=== PATIENT | male | born 1985 | race Caucasian/White ===

== ENCOUNTER 2018-08-25 08:52 | Inpatient (IN) ==
[2018-08-25] MEDS ORDERED: PHENOBARBITAL IV PRN (10:42)
[2018-08-25] MEDS ORDERED: D5W 1,000 ML IV PRN (10:42)
[2018-08-25] MEDS ORDERED: ZOFRAN IV PRN (10:42)
[2018-08-25] MEDS ORDERED: MAALOX PLUS LIQUID PO PRN (10:42)
[2018-08-25] MEDS ORDERED: DULCOLAX PR PRN (10:42)
[2018-08-25] MEDS ORDERED: DESYREL PO PRN (10:42)
[2018-08-25] MEDS ORDERED: SENOKOT PO PRN (10:42)
[2018-08-25] MEDS ORDERED: BENTYL PO PRN (10:42)
[2018-08-25] MEDS ORDERED: TUBERSOL ID ONE (10:42)
[2018-08-25] MEDS ORDERED: TYLENOL PO PRN (10:42)
[2018-08-25] MEDS ORDERED: SEROQUEL PO PRN (10:42)
[2018-08-25] MEDS ORDERED: SALINE LOCK IV FLUID XX ONE (10:42)
[2018-08-25] MEDS ORDERED: IMODIUM PO PRN (10:42)
[2018-08-25 11:19] LABS: HEMATOCRIT 50.5 % (42.0-52.0); HEMOGLOBIN 16.7 g/dL (14.0-18.0); MCH 31.9 PG (27-31); MCHC 33.1 g/dL (33-37); MCV 96.4 FL (81-99); MPV 8.6 FL (7.4-10.4); RBC 5.24 XMIL (4.7-6.1); RDW 12.2 % (11.5-14.5); WBC 9.81 X1000 (4.8-10.8)
[2018-08-25 11:37] LABS: INR 0.94
[2018-08-25 11:38] LABS: AMYLASE 72 U/L (20-200); LIPASE 35 U/L (13-60)
[2018-08-25 11:42] LABS: AGAP 12; ALKALINE PHOSPHATASE 86 U/L (32-122); BUN 12 mg/dL (8-22); CALCIUM 9.8 mg/dL (8.8-10.2); CHLORIDE 100 mmol/L (98-107); COSMO 275; CREATININE 0.6 mg/dL (0.7-1.2); ESTIMATED GFR > 60; GLUCOSE 92 mg/dL (70-104); GOT 36 U/L (10-34); GPT 44 U/L (10-44); POTASSIUM 5.1 mmol/L (3.5-5.1); SODIUM 138 mmol/L (136-145); TCO2 26 mmol/L (25-35); TOTAL PROTEIN 8.2 g/dL (6.3-8.3)
[2018-08-25] MEDS ORDERED: M.V.I.-12 10 ML, FOLIC ACID 1 MG, MAGNESIUM SULFATE 1 GM, THIAMINE 100 MG in NS 1,000 ML IV ONE (12:00)
[2018-08-25] MEDS: LIBRIUM PO SCH ×2 (12:54→19:41)
[2018-08-25] MEDS: NICODERM PATCH TD PRN (12:56)
[2018-08-25] MEDS: ROCEPHIN 1 GM in NS 50 ML IV SCH (12:56)
[2018-08-25] MEDS: ATARAX PO PRN (12:57)
--- NOTE | 2018-08-25 15:43 | Diag Imaging Result Doc PS360 ---
EXAM: CHEST-2 VIEWS - 08/25/2018 HISTORY: hypoxia TECHNIQUE: Chest two views COMPARISON: None. FINDINGS: Heart size is normal. The lungs are possibly mildly hyperexpanded. There is a small amount of infiltrate or scarring at the lateral right base. Lungs otherwise appear clear. There is no substantial pleural effusion or pneumothorax identified. IMPRESSION: Possible mildly hyperexpanded lungs. Small amount of infiltrate or scarring at lateral right base. Electronically signed by Nolberto Katz 08/25/2018 3:41 PM
[2018-08-25] MEDS: ROBAXIN PO PRN (16:21)
[2018-08-25 18:58] LABS: UR AMPHETAMINES QUAL PRESUMPTIVE POSITIVE (NONE DETECT); UR BARBITUATES QUAL NONE DETECTED (NONE DETECT); UR BENZODIAZEPIN QUAL PRESUMPTIVE POSITIVE (NONE DETECT)
[2018-08-25 18:59] LABS: UR CANNABINOIDS QUAL PRESUMPTIVE POSITIVE (NONE DETECT); UR COCAINE QUAL NONE DETECTED (NONE DETECT); UR METHADONE QUAL NONE DETECTED (NONE DETECT); UR METHAMPHETAMINE QUAL PRESUMPTIVE POSITIVE (NONE DETECT); UR OPIATES QUAL NONE DETECTED (NONE DETECT); UR OXYCODONE QUAL NONE DETECTED (NONE DETECT); UR PCP QUAL NONE DETECTED (NONE DETECT); UR PROPOXYPHENE QUAL NONE DETECTED (NONE DETECT); UR TCA QUAL NONE DETECTED (NONE DETECT)
[2018-08-25] MEDS: ZOFRAN ODT PO PRN ×2 (19:41→23:02)
[2018-08-26] MEDS: MOTRIN PO PRN ×2 (00:05→09:42)
[2018-08-26] MEDS: ROBAXIN PO PRN ×2 (00:05→09:42)
[2018-08-26] MEDS: ATARAX PO PRN (00:05)
[2018-08-26 00:18] LABS: URINE SOURCE VOIDED
[2018-08-26 00:35] LABS: BILIRUBIN URINE NEGATIVE (NEGATIVE); BLOOD URINE NEGATIVE (NEGATIVE); CLARITY VERY CLOUDY (CLEAR); COLOR YELLOW; GLUCOSE URINE NEGATIVE (NEGATIVE); KETONE URINE NEGATIVE (NEGATIVE); LEUKOCYTES URINE NEGATIVE (NEGATIVE); NITRITE URINE NEGATIVE (NEGATIVE); PROTEIN URINE NEGATIVE (NEGATIVE); UROBILINOGEN URINE NORMAL
[2018-08-26 00:56] LABS: URINE BACTERIA 3+ /HFP; URINE EPITHELIAL CELLS <10 /HPF (<10); URINE WBC <10 /HPF (<10)
[2018-08-26] MEDS: LIBRIUM PO SCH ×6 (01:33→22:34)
[2018-08-26] MEDS: PROTONIX PO SCH (06:16)
--- NOTE | 2018-08-26 08:51 | PROGRESS NOTE ---
DATE: 08/26/2018 SUBJECTIVE: Patient has no new complaints. He did have somewhat intense abdominal pain yesterday, but this seems to have resolved. It is improved. OBJECTIVE: Vital Signs: On physical, temperature 98, pulse 94, respiratory rate 22, BP 101/73. General: Patient is awake. He is in no apparent respiratory distress. HEENT: Normocephalic. Neck: Supple. CV: Regular rate. Chest: Clear, nonlabored. Abdomen: Soft, nontender. No masses. Positive bowel sounds. Extremities: Moves all extremities. ASSESSMENT: 1. Nausea, vomiting and abdominal pain. 2. Myalgias. 3. Paresthesias. 4. Paroxysmal sweating. 5. Alcohol abuse withdrawal and stabilization. 6. Stimulant abuse withdrawal and stabilization. 7. Opiate abuse withdrawal and stabilization. PLAN: Will continue patient in the hospital. Continue symptomatic care. Continue to taper Librium. Further orders as needed. cc: Ok Stark MD
[2018-08-26] MEDS ORDERED: NS 50 ML ONE (09:36)
[2018-08-26] MEDS: ROCEPHIN 1 GM in NS 50 ML IV SCH ×2 (09:41→10:51)
[2018-08-26] MEDS: ZOFRAN ODT PO PRN ×2 (09:42→22:34)
[2018-08-26] MEDS: VITAMIN B-1 PO SCH (09:42)
[2018-08-26] MEDS: THERA M PLUS PO SCH (09:42)
[2018-08-26] MEDS: FOLIC ACID PO SCH (09:42)
[2018-08-26] MEDS: SUBOXONE 2 MG/0.5 MG FILM SL SCH ×2 (11:49→22:35)
[2018-08-27] MEDS: LIBRIUM PO SCH ×4 (05:10→22:27)
[2018-08-27] MEDS: PROTONIX PO SCH (06:02)
[2018-08-27] MEDS: VITAMIN B-1 PO SCH (09:41)
[2018-08-27] MEDS: FOLIC ACID PO SCH (09:41)
[2018-08-27] MEDS: THERA M PLUS PO SCH (09:41)
[2018-08-27] MEDS: ROCEPHIN 1 GM in NS 50 ML IV SCH (09:45)
[2018-08-27] MEDS: SUBOXONE 2 MG/0.5 MG FILM SL SCH (13:19)
[2018-08-27] MEDS: NICODERM PATCH TD PRN (17:54)
[2018-08-28] MEDS ORDERED: SUBOXONE 2 MG/0.5 MG FILM SL SCH (01:00)
[2018-08-28] MEDS: LIBRIUM PO SCH (05:18)
[2018-08-28] MEDS: PROTONIX PO SCH (06:03)
[2018-08-28] MEDS: FOLIC ACID PO SCH (08:54)
[2018-08-28] MEDS: NICODERM PATCH TD PRN (08:54)
[2018-08-28] MEDS: VITAMIN B-1 PO SCH (08:54)
[2018-08-28] MEDS: THERA M PLUS PO SCH (08:54)
[2018-08-28] MEDS: ROCEPHIN 1 GM in NS 50 ML IV SCH (10:12)
[2018-08-28] MEDS: ZOFRAN ODT PO PRN (11:55)
[2018-08-28] MEDS: ROBAXIN PO PRN (14:36)
[2018-08-28] MEDS: ATARAX PO PRN (18:37)
[2018-08-28] MEDS: SUBOXONE 2 MG/0.5 MG FILM SL SCH (21:13)
[2018-08-29] MEDS: PROTONIX PO SCH ×2 (05:58→06:02)
[2018-08-29] MEDS: THERA M PLUS PO SCH (08:49)
[2018-08-29] MEDS: SUBOXONE 2 MG/0.5 MG FILM SL SCH ×2 (08:49→21:00)
[2018-08-29] MEDS: FOLIC ACID PO SCH (08:49)
[2018-08-29] MEDS: VITAMIN B-1 PO SCH (08:50)
--- NOTE | 2018-08-29 10:01 | PROGRESS NOTE ---
DATE: 08/28/2018 SUBJECTIVE: The patient is still somewhat sedated. He does arouse and is able answer to questions once he is awake. OBJECTIVE: Vital Signs: Reviewed. Blood pressures has been low in the upper 80s, low 90s. Respiratory 20. He is afebrile. HEENT: Normocephalic. Neck: Supple. CARDIOVASCULAR: Regular rate. Chest: Clear and nonlabored. Abdomen: Soft, nondistended. Extremities: Moves all extremities. ASSESSMENT: 1. Hypotension. 2. Sedation. 3. Chronic polysubstance use and abuse. 4. Myalgias, improved. 5. Paresthesias, resolved. PLAN: We will continue the patient in the hospital. Will hold his Librium currently. Will also hold his Suboxone and will follow. Will treat symptomatically. Hopefully home over the next 1 or 2 days as has symptoms improve. cc: Ok Stark MD
[2018-08-29] MEDS: ROCEPHIN 1 GM in NS 50 ML IV SCH (11:02)
[2018-08-29] MEDS: ATARAX PO PRN ×2 (12:29→15:15)
--- NOTE | 2018-08-29 14:50 | PROGRESS NOTE ---
DATE: 08/29/2018 SUBJECTIVE: The patient states he started to feel a little bit better this morning. He slept most of the day yesterday. He denies any chest pain or palpitations. He denies any focalized weakness. PHYSICAL EXAMINATION: Vital signs reviewed. Blood pressures are improving; currently 100 systolic. General: Patient is in no current respiratory distress. HEENT: Normocephalic. Neck supple. CARDIOVASCULAR: Regular rate. No murmurs. Chest clear and unlabored. Abdomen is soft and nondistended. Extremities: He moves all extremities. ASSESSMENT: 1. Hypotension likely secondary to medication over usage. We have held Librium and held Suboxone. This morning, we will restart 2 mg of Suboxone and follow his clinical progress. 2. Myalgias. 3. Paresthesias. 4. Paroxysmal sweating. PLAN: As noted above. Hopefully, patient can discharge home over the next day or 2 if his blood pressures remain stable. cc: Ok Stark MD
[2018-08-29] MEDS: ROBAXIN PO PRN (15:14)
--- NOTE | 2018-08-29 16:17 | HISTORY AND PHYSICAL ---
CHIEF COMPLAINT: Nausea and vomiting. HISTORY OF PRESENT ILLNESS: The patient is a 33-year-old male who presented to [facility] secondary to nausea, vomiting, abdominal pain, muscle aches. SOCIAL HISTORY: Patient is single. He is unemployed. Lives at home in [place]. PAST MEDICAL HISTORY: History of seizures. INCOMPLETE REPORT -- DICTATION ENDS HERE. cc: Ok Stark MD
--- NOTE | 2018-08-29 21:32 | HISTORY AND PHYSICAL ---
CHIEF COMPLAINT: Nausea, vomiting. HISTORY: Patient 33-year-old male who presented to [facility] secondary to nausea, vomiting, abdominal pain, myalgias, muscle aches. Notes has been abusing substances and has been trying to stop but he has not been able to get under control. SOCIAL HISTORY: Patient is single, he is unemployed, lives at home in [place]. PAST MEDICAL HISTORY: History of seizures that was mainly related to withdrawal although has had a seizure that may not have been substance abuse related. Has history of hepatitis C, recurrent pneumonia in fact he was just recently diagnosed with pneumonia and discharged the hospital but did not fill a prescription. History of overdose in 2009 and again in May 2018, history of depression diagnosed at age 17, last seizure was in May 2018. ALLERGIES: Neosporin. REVIEW OF SYSTEMS: CINA score is 19 secondary to nausea, vomiting, abdominal pain, frequent episodes of diarrhea, constant tremors, frequently shaking, cold chills. Denies any fevers but does have frequent temperature changes, he is restless. Denies any headaches, blurred vision or change in vision, denies any focalized numbness, tingling, weakness but is unable sit still constantly fidgeting, not sleeping well not eating well. Denies any chest pain, palpitation, denies any focalized weakness or numbness. Denies any dysuria, frequency, urgency, hesitancy, polyuria, polydipsia. Denies skin rashes, weight loss or weight gain. SUBSTANCE ABUSE HISTORY: The patient was in a treatment facility in [place], [place] for 7 days in early 1999, in [place] in 2013 for alcohol withdrawal for 7 days, [place] in 2007 for alcohol withdrawal for 7 days. Unfortunately he has only remained sober for 1 to 2 months at a time over the past 17 years. Started drinking alcohol as early as age 7, currently drinks every day at least a 6-pack and usually 2 pints of vodka a day. Started marijuana at age 12, started stimulants at age 15, currently using IV daily, started opiates also at age 21 and is using this IV daily. FAMILY HISTORY: Positive for alcoholism. PHYSICAL: Vital signs reviewed and stable. Patient is awake, alert, he is currently in no distress. He is somewhat ill-appearing secondary to his withdrawal symptoms. Denies any headaches. He is awake, alert, oriented x3. He is somewhat pleasant to talk with although has to be frequently redirected to answer questions as he is easily distracted, he is constantly fidgeting .HEENT: Normocephalic. Neck: Supple. CV: Regular rate, no murmurs. Chest: Clear, nonlabored. Abdomen: Soft, nondistended, nontender. Extremities: Moves all extremities. Neuro: No focal changes, he is awake, alert, oriented, constantly fidgeting. LABS: Pending. ASSESSMENT: 1. Nausea, vomiting. 2. Abdominal pain. 3. Myalgias. 4. Paresthesias. 5. Tremors. 6. Paroxysmal sweating. 7. Alcohol abuse withdrawal and stabilization. 8. Opiate abuse withdrawal and stabilization. 9. Polysubstance use and abuse. PLAN: We will admit patient the hospital, place him on Librium taper, as he tapers down on Librium hopefully we can increase his Suboxone and continue with medication assisted therapy. Will continue counseling each day and will monitor for seizures as he has had seizures in the past. cc: Ok Stark MD
[2018-08-30] MEDS: PROTONIX PO SCH (06:27)
[2018-08-30] MEDS: VITAMIN B-1 PO SCH (09:17)
[2018-08-30] MEDS: THERA M PLUS PO SCH (09:17)
[2018-08-30] MEDS: FOLIC ACID PO SCH (09:17)
[2018-08-30] MEDS: SUBOXONE 2 MG/0.5 MG FILM SL SCH (09:18)
[2018-08-30 13:00] VITALS: BP 93/67
[2018-08-30] MEDS: ROCEPHIN 1 GM in NS 50 ML IV SCH (13:13)
== END 2018-08-30 13:14 | disposition home or self-care (01) | DRG 897 ==
LOC: P.MEDSURG 10:14
PROVIDERS: ADMIT Family Medicine; ATTEND Family Medicine
CPT/HCPCS: 71020; 71046; 80053; 80104; 80301; 80305; 80307; 80320; 81001; 82055; 82150; 83690; 85027; 85610; 86580; A9270; G0431; G0434; G0477; G0480; G6040; J0696; J2405; J3411; J3475; J7030